=== PATIENT | female | born 1970 | race Caucasian/White ===

== ENCOUNTER 2025-09-03 09:38 | Outpatient (AMB) | payer OTHER, SELFPAY ==
--- NOTE | 2025-09-03 09:22 | A.OFFPC_ITS ---
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 The patient reports being postmenopausal for approximately two years and has experienced a 30-pound weight gain over the past year without any changes to eating habits. The patient also complains of joint soreness and constant soreness in the right calf, which feels like post-workout muscle soreness. The patient's past surgical history includes two sections and an appendectomy in 1999. The patient has no known chronic medical conditions. Previously, the patient underwent a 48-hour multimedia educational specialist for stress-related heart concerns, and the results were normal. The patient is a former smoker who quite 5 years ago after smoking a pack a day for 20 years. The patient reports drinking wine a few times a week and denies drug use. The patient has a significant family history of cancer, including a mother with stage 4 lung cancer (smoker), a maternal grandmother with breast cancer, and a maternal grandfather with pancreatic cancer. The patient's father has sleep apnea. Regarding health maintenance, the patient is overdue for a colonoscopy, having never had one. The last Pap smear was approximately three years ago, and the patient missed a recent CD MANUFACTURING SUPERVISOR appointment. The patient also reports increased snoring, which is believed to be weight- related, and not feeling rested upon waking. Medical History: - Postmenopausal state, amenorrhea for a pproximately 2 years. - Unintentional weight gain of ~30 lbs o myriam the past year. - Performance anxiety, situational. - History of stress-related cardiac symp toms with a normal 48-hour Holter monitor evaluation. - Reports snoring. - Right calf soreness. - Current upper respiratory infection. Surgical History: - section x2 - Appendectomy (1999) Medications: - Propranolol 10 mg as needed for perfor krista anxiety, used a few times per year. Family History: - Mother: Stage 4 lung cancer, history o f smoking. - Maternal grandmother: Breast cancer. - Maternal grandfather: Pancreatic cance r. - Another grandmother: Cancer of unknown type. - Father: Sleep apnea. - General: Strong family history of smok ing. Diagnostic Results: - Past Tests: - 48-hour Holter monitor: Normal, no significant events noted. Social History - Tobacco Use: The patient is a former s moker who quit 5 years ago and smoked for a total of 20 years (20ppd). - Alcohol Use: The patient drinks wine 2 -3 times per week, typically one glass with dinner. - Illicit Substance Use: The patient den ies use of marijuana, heroin, or cocaine. - Occupation: The patient works from [employer] and reports sitting for most of the day. - Allergies: The patient denies any know n allergies. [facility] Medical History (Updated 09/03/25 @ 10:24 by Reji Gongora MD) Annual physical exam Post menopausal syndrome Performance anxiety DESMOND (obstructive sleep apnea) Tobacco use disorder Family History (Updated 09/03/25 @ 09:51 by Mag Ramirez MA) Mother No problems noted. Father No problems noted. Social History Housing: House Patient Tobacco Use Status: Former Tobacco user e-Cigarette/Vaping Use: Former Use service: No Current occupational status: employed Cognitive needs: No Hearing needs: No Vision needs: Yes (rx glasses) Questionnaire PHQ-9 Over the last 2 weeks, how often have you been bothered by any of the following problems? 1. Little interest or pleasure in doing things: not at all 2. Feeling down, depressed, or hopeless: not at all 3. Trouble falling or staying asleep, or sleeping too much: not at all 4. Feeling tired or having little energy: not at all 5. Poor appetite or overeating: not at all 6. Feeling bad about yourself - or that you are a failure or have let yourself or your family down: not at all 7. Trouble concentrating on things, such as reading the newspaper or watching television: not at all 8. Moving or speaking so slowly that other people could have noticed. Or the opposite - being so fidgety or restless that you have been moving around a lot more than usual: not at all 9. Thoughts that you would be better off or of hurting yourself in some way: not at all Total score: 0 Depression Screening Interpretation: Negative Depression Screening Done: Yes 10449 - PHQ-9 Billing: Yes Source: Developed by Drs. Bridger Morrison, Anna Carranza, Torsten Brady and colleagues, with an educational adrian from [employer]. Thrive Questionnaire Date Thrive assessed: 09/03/25 I am a: Patient What is your living situation today?: I have a steady place to live Within the past 12 months, did the food you bought not last and you didn't have the money to get more?: Never true Within the past 12 months, did you worry whether your food would run out before you got money to buy more?: Never true Do you have trouble paying for medicines?: No Do you have trouble getting transportation to medical appointments?: No Do you have trouble paying your heating and electricity bill?: No Do you have trouble taking care of your child, family member or friend?: No Do you have trouble with day-to-day activities such as bathing, preparing meals, shopping, managing finances, etc.?: No Are you currently unemployed and looking for a job?: No Are you interested in more education?: No THRIVE Score: 0 AUDIT C Alcohol Use Questionnaire (AUDIT-C) 1. How often do you have a drink containing alcohol?: 2-3 times a week 2. How many drinks containing alcohol do you have on a typical day when you are drinking?: 1 or 2 3. How often do you have six or more drinks on one occasion?: Never Total Score: 3 Score Reviewed/Action Taken: Yes KAROL-7 AMB Questionnaire KAROL-7 Date KAROL - 7 assessed: 09/03/25 Feeling nervous, anxious, or on edge: 0 = Not at all Not being able to stop or control worryin = Not at all Worrying too much about different things: 0 = Not at all Trouble relaxin = Not at all Being so restless that it is hard to sit still: 0 = Not at all Becoming easily annoyed or irritable: 0 = Not at all Feeling afraid as if something awful might happen: 0 = Not at all Total KAROL-7 score (0-4 normal; 5-9 mild; 10-14 moderate; 15-21 severe): 0 Source: Developed by Drs. Bridger Morrison, Anna Carranza, Torsten Brady and colleagues, with an educational adrian from [employer]. KAROL-7 Assessment Billing KAROL-7 Assessment Tool: KAROL-7 Assessment 18942 Review of Systems Narrative Review of Systems - General: Reports experiencing symptoms of a cold. - Constitutional: Reports a weight gain of approximately 30 pounds over the last year. - Musculoskeletal: Reports joint soreness and persistent soreness in the right calf. - Gynecological: Reports being postmenopausal, with no menses for about two years. - Respiratory: Reports increased snoring. - Neurological: Reports not feeling rested upon waking in the morning. - Psychiatric: Reports occasional performance anxiety before singing. All systems reviewed & are unremarkable except as reviewed in HPI and above Physical exam (Primary Care) Vital Signs: Last Vital Signs Temp 97.8 F 09/03/25 09:42 Pulse 96 09/03/25 09:42 BP 138/82 09/03/25 09:42 Pulse Ox 99 09/03/25 09:42 Oxygen Delivery Method Room Air 09/03/25 09:42 BMI result Body Mass Index 40.2 Tobacco/Smoking Status: Tobacco use Status Tobacco use date assessed 09/03/25 09/03/25 09:25 Patient Tobacco Use Status Former Tobacco user 09/03/25 09:51 e-Cigarette/Vaping Use Former Use 09/03/25 09:51 PHQ-9: PHQ-9 Score PHQ-9: Total score 0 09/03/25 09:56 Depression Screening Interpretation: Negative Thrive Assessment: Date of Thrive Assessment Date Thrive assessed 09/03/25 09/03/25 09:31 Narrative Physical Exam General: +Alert and oriented, Well nourished, No acute distress. Eye: Pupils are equal, round and reactive to light, Intact accommodation, Extraocular movements are intact, Normal conjunctiva, Vision unchanged. HENT: Normocephalic, Atraumatic, Tympanic membranes are clear, Normal hearing, Oral mucosa is moist, No pharyngeal erythema, Ear canals patent. Respiratory: Lungs CTA bilaterally, No wheeze, Respirations are non-labored. Cardiovascular: Regular rate, Regular rhythm, S1 auscultated, S2 auscultated, No murmur, Good pulses equal in all extremities, Normal peripheral perfusion, No edema. Gastrointestinal: Soft, Non-tender, Non-distended, Normal bowel sounds, No organomegaly. Musculoskeletal: Normal range of motion, Normal strength, No tenderness, No swelling, No deformity, Normal gait. Integumentary: Warm, Dry, [place], Intact. Neurologic: Alert, Oriented, Normal sensory, Normal motor function, No focal defects, Cranial Nerves II-XII are grossly intact, Normal deep tendon reflexes. Psychiatric: Cooperative, Appropriate mood & affect, Normal judgment. Coding Level of Care Code New Pt Level 4 (75397) New Pt Prev Care 40-64y(97673) Diagnoses DESMOND (obstructive sleep apnea) G47.33 Performance anxiety F41.8 Post menopausal syndrome N95.1 Tobacco use disorder F17.200 Annual physical exam Z00.00 Additional Codes PHQ-9 - 30263 - PHQ-9 Billing: Yes ([id number]) KAROL-7 Assessment Billing - KAROL-7 Assessment Tool: KAROL-7 Assessment 41386 ([id number]) Comment [id number] Assessment & Plan Assessment & Plan (1) DESMOND (obstructive sleep apnea): Comment: - The patient reports increased snoring and not feeling rested. - Given these symptoms and their association with weight gain and cardiovascular risk, an order for a sleep study will be placed to evaluate for DESMOND. - Discussed potential treatments, such as CPAP, if diagnosed. Code(s): G47.33 - Obstructive sleep apnea (adult) (pediatric) Category: Medical (2) Performance anxiety: Comment: - History of performance anxiety and managed with propranolol 10mg PRN Code(s): F41.8 - Other specified anxiety disorders Category: Medical (3) Post menopausal syndrome: Comment: - The patient has experienced a 30 lb weight gain, likely multifactorial and related to menopausal hormonal changes. - Ordered thyroid function tests and A1c to rule out hypothyroidism and diabetes. - Counseled on the importance of lifestyle modifications, including diet and increased physical activity, as the primary intervention. - Deferred discussion of hormone replacement therapy (HRT), citing its risks and the need to attempt behavioral changes first. Code(s): N95.1 - Menopausal and female climacteric states Category: Medical (4) Tobacco use disorder: Comment: - 20 PPD, quit 5 years ago - Referred to lung cancer screening Code(s): F17.200 - Nicotine dependence, unspecified, uncomplicated Category: Medical (5) Annual physical exam: Comment: - The patient is establishing care. - Plan includes comprehensive lab work (CBC, CMP, lipid panel, A1c, thyroid function tests, Vitamin D, hepatitis panel, HIV screen) and arranging overdue health screenings. - Will follow up in 3 months to review results and progress. - Colorectal Cancer: The patient is overdue for screening and has never had a colonoscopy. An order will be placed. - Breast Cancer: The patient is due for screening. An order for a mammogram will be placed. - Cervical Cancer: The patient's last Pap smear was ~3 years ago. The patient was advised to schedule follow-up with their CD MANUFACTURING SUPERVISOR for an updated Pap smear. Code(s): Z00.00 - Encounter for general adult medical examination without abnormal findings Category: Medical Plan: Health Maintenance: - Advised to schedule a Pap smear with CD MANUFACTURING SUPERVISOR, as the last screening was ~3 years ago. - Ordered a colonoscopy for colorectal cancer screening, as the patient is overdue. - Ordered a mammogram for breast cancer screening. - Ordered an annual low-dose CT chest for lung cancer screening due to significant smoking history. - Ordered comprehensive baseline labs including CBC, CMP, lipids, HbA1c, TSH, and Vitamin D. - Ordered a sleep study to evaluate for suspected obstructive sleep apnea. - Counseled on the importance of lifestyle modifications, including regular physical activity and a healthy diet, for weight management and overall health. Patient was informed and verbally consented to the use of an ambient scribe for clinic note documentation during this visit. Vital signs reviewed. Comprehensive history, review of systems, and physical exam completed. Medications, allergies, and problem list reviewed and updated. Counseling provided on nutrition, regular exercise, sleep hygiene, and moderation of alcohol use. Discussed age-appropriate screenings (mammogram, colonoscopy, Pap, bone density) and immunizations (flu, COVID, shingles, Tdap). Screened for depression, fall risk, and home safety; no current concerns. Discussed stress management, dental and vision care, and importance of ongoing preventive follow-up. Routine labs ordered for metabolic and lipid screening. Patient educated on healthy lifestyle and agrees with the plan. Plan During this initial visit, I discussed the comprehensive plan to address the patient's concerns and establish care. I explained the rationale for ordering a wide range of blood tests, including checks for thyroid function and diabetes, as potential contributors to the recent weight gain. We discussed that while menopause is a likely factor, lifestyle modifications such as diet and exercise are the first and most important steps, and we would defer considering hormone replacement therapy due to its potential risks. Given the strong family history of cancer and the patient's past smoking, I stressed the importance of preventative screenings. I informed the patient that orders for a mammogram and colonoscopy would be placed, and that staff would reach out to assist with scheduling. We also addressed the patient's sleep quality and snoring. I explained that these symptoms suggest possible sleep apnea, a condition that can affect weight and heart health, and recommended a sleep study for further evaluation. Finally, I provided instructions for accessing the patient portal to view test results and arranged for a follow-up visit in three months to review all findings and progress. Orders: Orders MM screening mammo BI Today Z12.31 - Encounter for screening mammogram for malignant neoplasm of breast Complete Blood Count Auto Diff Today Z00.00 - Encounter for general adult medical examination without abnormal findings Hemoglobin A1c Today Z00.00 - Encounter for general adult medical examination without abnormal findings HIV Ab/Ag Today Z00.00 - Encounter for general adult medical examination without abnormal findings Lipid Panel Today Z00.00 - Encounter for general adult medical examination without abnormal findings TSH reflex Free T4 Today Z00.00 - Encounter for general adult medical examination without abnormal findings Comprehensive Met. Panel Today Z00.00 - Encounter for general adult medical examination without abnormal findings Hepatitis A,B,C Profile Today Z00.00 - Encounter for general adult medical examination without abnormal findings Microalbumin, Random (w Creat) Today Z00.00 - Encounter for general adult medical examination without abnormal findings Syphilis Screen Today Z00.00 - Encounter for general adult medical examination without abnormal findings Vitamin D 25-OH Total Today Z00.00 - Encounter for general adult medical examination without abnormal findings RT PSG in-lab sleep study Today G47.33 - Obstructive sleep apnea (adult) (pediatric) Referrals Lung Cancer Screening Referral F17.200 - Nicotine dependence, unspecified, uncomplicated Open Access Screening Colonoscopy Referral Z12.11 - Encounter for screening for malignant neoplasm of colon Patient Instructions: - Please go to the lab, which is located across the black, to have your blood drawn today. - You will receive calls from our office to schedule your mammogram, colonoscopy, lung cancer screening, and sleep study. - Use the QR code we provided to sign up for the patient portal, where you can see your test results as they become available. - Make an appointment with your title checker (CD MANUFACTURING SUPERVISOR) to have a Pap smear. - It is very important to try to stay active by walking or going to the gym, and to eat a healthy diet to help with your weight. - I will contact you if any of your lab results are concerning. - Please schedule a follow-up visit in three months to discuss all your results.
[2025-09-03 09:42] VITALS: BP 138/82; PULSE 96; TEMP 36.6; O2SAT 99; BMI 40.2
== END 2025-09-03 10:13 | disposition home or self-care (01) ==
LOC: HO.HMCHD 09:39
PROVIDERS: PCP Internal Medicine; Visit Provider Student in an Organized Health Care Education/Training Program
DX: Z00.00 Encounter for general adult medical examination without abnormal findings (principal); G47.33 Obstructive sleep apnea (adult) (pediatric); F41.8 Other specified anxiety disorders; N95.1 Menopausal and female climacteric states; F17.200 Nicotine dependence, unspecified, uncomplicated

== ENCOUNTER → 2025-09-03 09:38 | Outpatient (BNVA) | payer OTHER, SELFPAY | PROVIDERS: PCP Internal Medicine; Visit Provider Student in an Organized Health Care Education/Training Program | DX: Z13.31 Encounter for screening for depression (principal); Z13.39 Encounter for screening examination for other mental health and behavioral disorders | CPT/HCPCS: 96127 ==

== ENCOUNTER 2025-09-03 10:17 | Outpatient (REF) | payer OTHER, SELFPAY ==
--- OUTSIDE RECORDS SUMMARY | 2025-09-03 10:54 | XMS_ITS ---
Author Name [facility] Organization Unknown History of Medication Use Medication Directions Dispensed Refills Start Date End Date Stat us erythromycin (ROMYCIN) ophthalmic ointment Administer to affected eye(s) 4 (four) times a day for 7 days (Apply 1 cm) 12/28/2024 active propranolol (INDERAL) 10 MG tablet 01/21/2015 active Problems Problem Status Onset Date Problem Type Date of Resolution Source Mucopurulent conjunctivitis, left active EncounterDiagnosisAct [facility] Encounters Encounter Type Encounter Reason Primary Diagnosis Location Date Ambulatory Eyes Other mucopurule nt conjunctivitis, left eye [facility] 12/28/2024 Care Team Organization Name Specialty Phone Email Start Date End Da te [facility] 12/29/2024 Podiat[facility] 0 02/05/2024 [facility] 0 02/05/2024
[2025-09-03 13:59] LABS: MANUAL DIFF FLAG NO
[2025-09-03 14:13] LABS: Hematocrit 40.7 % (37.0-47.0); Hemoglobin 13.3 g/dl (12.0-16.0); Imm Gran Abs Auto 0.02 X10*3/uL (0.00-0.03); Imm Gran Pct Auto 0.3 % (0.0-0.4); Lymphocytes Absolute Auto 1.6 X10*3/uL (1.2-4.9); Mean Corpuscular HGB Conc 32.7 g/dl (31.0-35.0); Mean Corpuscular Hemoglobin 30.6 pg (27.0-33.0); Mean Corpuscular Volume 93.6 fL (80.0-98.0); NRBC Abs Auto 0.000 X10*3/uL (0.0-0.012); NRBC Pct Auto 0.0 /100WBC (0.0-0.2); Platelet Count 297 X10*3/uL (160-400); Red Blood Count 4.35 X10*6/uL (4.20-5.50); White Blood Count 5.7 X10*3/uL (4.8-10.8)
[2025-09-03 19:20] LABS: Alanine Aminotransferase 25 U/L (0-31); Albumin Level 4.5 g/dL (3.5-5.0); Alkaline Phosphatase 97 U/L (39-117); Anion Gap 12 (12-20); Aspartate Amino Transferase 19 U/L (5-31); Blood Urea Nitrogen 11 mg/dL (9-16); Calcium 9.7 mg/dL (8.4-10.2); Carbon Dioxide 30 mmol/L (22-29); Chloride 105 mmol/L (96-108); Cholesterol 208 mg/dL (<200); Estimated Glomerular Filt Rate > 60; HDL Cholesterol 55 mg/dL (>40); Potassium 4.9 mmol/L (3.3-5.1); Sodium 142 mmol/L (135-145); Total Protein 7.7 g/dL (6.5-8.0); Triglycerides 96 mg/dL (<150)
[2025-09-04 08:29] LABS: Syphilis Screen Nonreactive (Nonreactive)
[2025-09-04 08:43] LABS: HBS Num1 1.18 mIU/mL (0-7.99); HBc Num1 0.16 S/CO (0.00-0.79); HBsAGNum1 0.45 S/CO (0.00-0.99); HIV Num 1 0.06 S/CO (0.00-0.99); Hepatitis A Antibody IgM 0.13 Index (0-0.79); Hepatitis B Surface Antigen Negative (Negative); ~HepC Num1 0.11 S/CO (0.00-0.79); ~Hepatitis A Antibody IgM Nonreactive (Nonreactive); ~Hepatitis B Surface Antibody NONREACTIVE (Nonreactive); ~Hepatitis C Antibody Nonreactive (Nonreactive)
== END 2025-09-03 10:18 | disposition home or self-care (01) ==
LOC: HO.10HDL 10:17
PROVIDERS: Visit Provider Student in an Organized Health Care Education/Training Program
DX: Z00.00 Encounter for general adult medical examination without abnormal findings (principal); Z11.4 Encounter for screening for human immunodeficiency virus [HIV]; Z13.0 Encounter for screening for diseases of the blood and blood-forming organs and certain disorders involving the immune mechanism; Z13.29 Encounter for screening for other suspected endocrine disorder; Z13.6 Encounter for screening for cardiovascular disorders; Z13.1 Encounter for screening for diabetes mellitus; Z13.21 Encounter for screening for nutritional disorder
CPT/HCPCS: 36415; 80053; 80061; 82043; 82306; 82570; 83036; 84443; 85025; 86704; 86706; 86709; 86780; 86803; 87340; 87389